=== PATIENT | female | born 1985 | race Caucasian/White ===

== ENCOUNTER 2023-07-08 09:28 | Outpatient (CLI) | payer BC ==
[2023-07-08] MEDS ORDERED: Iopamidol 300 61% 100 ML VIAL FS ONE (12:32)
== END 2023-07-08 09:29 | disposition home or self-care (01) ==
LOC: CSHCT 09:28
PROVIDERS: ATTEND Urology
DX: R31.0 Gross hematuria (principal); N83.8 Other noninflammatory disorders of ovary, fallopian tube and broad ligament; N85.2 Hypertrophy of uterus; D25.9 Leiomyoma of uterus, unspecified; N20.0 Calculus of kidney
CPT/HCPCS: 74178; Q9967

== ENCOUNTER 2024-04-26 13:48 | Outpatient (CLI) | payer BC | END 2024-04-26 13:49 | disposition home or self-care (01) | LOC: CSHULT 13:48 | PROVIDERS: ATTEND Urology | DX: N20.0 Calculus of kidney (principal); N28.9 Disorder of kidney and ureter, unspecified | CPT/HCPCS: 76770 ==